=== PATIENT | female | born 1980 | race Caucasian/White ===

== ENCOUNTER 2017-03-28 00:35 | Emergency (ER) | payer MEDICAID ==
[~2017-03-28] VITALS: Ht 149.9 cm; Wt 59.9 kg
[~2017-03-28 00:35] MED LIST: GLUCOTROL XL5 M1 PO; LIPITOR20 MG PO; VITAMIN D32000 I1 PO; ZESTRIL10 MG PO
[2017-03-28 00:43] VITALS: BP 133/76
--- NOTE | 2017-03-28 00:52 | NUR ---
PT TAKEN TO BED 8
--- NOTE | 2017-03-28 00:55 | NUR ---
37 Y/O F W/C/O LOWER ABD / BACK PAIN , FEVER AND CHILLS X YESTERDAY. DENIES ANY PAIN WITH URINATION BUT STATES IS HAVING WHITE CLEAR DISCHARGE AND SOMETIMES BROWNISH X YESTERDAY WELL. NO S/S OF DISTRESS NOTED. ER MD MADE AWARE.
--- NOTE | 2017-03-28 01:23 | NUR ---
Dr. Vicente evaluating patient at bedside.
[2017-03-28] MEDS ORDERED: ACETAMINOPHEN EXTRA STRENGTH 500 MG TAB PO ONE (01:30)
[2017-03-28] MEDS ORDERED: KETOROLAC 30 MG/ML VIAL IM ONE (01:30)
--- NOTE | 2017-03-28 01:58 | NUR ---
Female Vocational Nurse Lvn (EMT ASAD) accompanied ER MD FOR female patient Pelvic Exam.
--- NOTE | 2017-03-28 02:11 | NUR ---
PT RESTING IN BED NO DISTRESS NOTED, PT AAO, OFFER BLANKET PT REFUSED CLAIMED IM OK
--- NOTE | 2017-03-28 03:15 | NUR ---
Ultrasound at bedside.
--- NOTE | 2017-03-28 03:15 | NUR ---
Harjeet cesar in [facility] - 03/28/17 [address] Vicente evaluating patient at bedside.
[2017-03-28 03:53] VITALS: BP 116/78
--- NOTE | 2017-03-28 03:53 | NUR ---
Patient discharged with v/s stable. Written and verbal after care instructions given and explained. Patient alert, oriented and verbalized understanding of instructions. Ambulatory with steady gait. All questions addressed prior to discharge. ID band removed. Patient advised to follow up with PMD THIS WK OR RETURN TO ER IF CONDITION WORSENS. Rx of NAPROSYN, FLAGYL AND NORCO given. Patient educated on indication of medication including possible reaction and side effects. Opportunity to ask questions provided and answered.
[2017-03-31] MEDS ORDERED: KEFLEX250 MG PO (18:40)
[2017-03-31] MEDS ORDERED: ACTOS30 M1 PO (18:40)
[2017-03-31] MEDS ORDERED: LEVEMIR100 U/ML SUBQ (18:40)
[2017-03-31] MEDS ORDERED: METFORMIN HCL500 MG PO (18:40)
== END 2017-03-28 03:53 | disposition home or self-care (01) ==
LOC: MED 00:35
DX: R10.2 Pelvic and perineal pain (principal); E11.9 Type 2 diabetes mellitus without complications; I10 Essential (primary) hypertension; E78.00 Pure hypercholesterolemia, unspecified
CPT/HCPCS: 36415; 76856; 81001; 81025; 87210; 96372; 99285; J1885; Q0092

== ENCOUNTER 2017-03-28 13:21 | Inpatient (IN) | payer MEDICAID ==
[~2017-03-28] VITALS: Ht 149.9 cm; Wt 59.9 kg
[~2017-03-28 13:21] MED LIST changes: +ATOR20TA PO; +CHOL20005 PO; +GLIP5TER PO; -GLUCOTROL XL5 M1 PO; -LIPITOR20 MG PO; +LISI10TA11 PO; -VITAMIN D32000 I1 PO; -ZESTRIL10 MG PO
[2017-03-28 14:13] VITALS: BP 126/63
--- NOTE | 2017-03-28 17:10 | NUR ---
Patient ambulated to bed 06.
--- NOTE | 2017-03-28 17:15 | NUR ---
PT PRESENTS TO ER W/C/O FEVER AND VOMITING. TEMPERATURE UPON ARRIVAL TO ER 98.1. PT STATES SHE WAS SEEN IN ER LAST NOC AND D/C, BUT FEELS SHE'S GOTTEN WORSE. HX DM, HTN, HYPERLIPIDEMIA.SKIN IS PINK/WARM/DRY; AAOX4 WITH EVEN AND STEADY GAIT; LUNGS CLEAR BL; HR EVEN AND REGULAR; PT DENIES ANY FEVER, CP, SOB, OR COUGH AT THIS TIME; PATIENT STATES SHE HAS ABDOMINAL PAIN TAHT RADIATEDS TO LOWER BACK;PAIN SCALE OF 8/10 AT THIS TIME; VSS; PATIENT POSITIONED FOR COMFORT; HOB ELEVATED; BEDRAILS UP X2; BED DOWN.ALL MONITORS IN PLACED.
--- NOTE | 2017-03-28 17:46 | NUR ---
DR HERNANDEZ AT BEDSIDE.
--- NOTE | 2017-03-28 18:21 | NUR ---
NOTIFIED ER OF PT'S BODY TEMP OF 102.1.
[2017-03-28 18:43] LABS: HEMATOCRIT 37.8 % (36-48); HEMOGLOBIN 12.4 g/dL (12.0-16.0); MEAN CORPUSCULAR HEMOGLOBIN 28 pg (27-31); MEAN CORPUSCULAR HGB CONC 33 g/dL (33-37); MEAN CORPUSCULAR VOLUME 86 fL (80-94); PLATELET COUNT (AUTO) 234 K/uL (140-450); RED BLOOD CELL COUNT(AUTO) 4.41 MIL/uL (4.20-5.40); RED CELL DISTRIBUTION WIDTH 12.1 % (11.6-13.7); WHITE BLOOD COUNT (AUTO) 8.6 K/uL (4.8-10.8)
[2017-03-28 18:57] LABS: BILIRUBIN,URINE NEGATIVE (NEGATIVE); BLOOD, URINE NEGATIVE (NEGATIVE); LEUKOCYTE ESTERASE ,URINE NEGATIVE (NEGATIVE); NITRITE, URINE POSITIVE (NEGATIVE); PH,URINE 5.5 (5.0-9.0); PROTEIN,URINE NEGATIVE (NEGATIVE); UGLUCOSE 3+ (NEGATIVE); UROBILINOGEN,URINE 0.2 EU/dL (0.2 - 1)
[2017-03-28 19:00] LABS: ANION GAP 16.8 (8-16); CALCIUM 9.1 mg/dL (8.5-10.1); CARBON DIOXIDE 24.1 mmol/L (21-32); CREATININE 0.6 mg/dL (0.6-1.3); POTASSIUM 3.9 mmol/L (3.5-5.1)
[2017-03-28 19:01] LABS: APPEARANCE,URINE HAZY (CLEAR); COLOR,URINE STRAW (YELLOW)
[2017-03-28 19:06] LABS: ALBUMIN 3.6 g/dL (3.4-5.0); BAND % (MANUAL) 9 % (0-8); LYMPHOCYTES % (MANUAL) 8 % (20-46); MONOCYTES % (MANUAL) 2 % (5-12); NEUTROPHILS % (MANUAL) 81 (43-65); TOTAL BILIRUBIN 0.4 mg/dL (0.0-1.0)
[2017-03-28 19:07] LABS: PLATELET ESTIMATE ADEQUATE
[2017-03-28 19:08] LABS: BACTERIA,URINE 4+ /HPF (None Seen); RBC,URINE 0-3 /HPF (0-5)
--- NOTE | 2017-03-28 19:11 | NUR ---
Pt report given to LESLIE PRATT. Transfer of care at this time.
[2017-03-28] MEDS ORDERED: ONDANSETRON 4 MG/2 ML VIAL IVP ONE (19:20)
[2017-03-28] MEDS ORDERED: ACETAMINOPHEN EXTRA STRENGTH 500 MG TAB PO ONE (19:20)
[2017-03-28] MEDS ORDERED: LEVOFLOXACIN 750 MG/D5W PREMIX 150 ML IV ONE (19:20)
[2017-03-28] MEDS ORDERED: HYDROmorphone 1 MG/ML AMP IVP ONE (19:20)
[2017-03-28] MEDS ORDERED: NACL 0.9% 1,000 ML IV ONE (19:25)
[2017-03-28] MEDS ORDERED: INSULIN HUMAN REGULAR 100 UNITS/ML 10 ML VIAL SUBQ ONE (19:45)
--- NOTE | 2017-03-28 19:49 | NUR ---
RECEIVED REPORT FROM LESLIE PRATT FOR TRANSFER OF CARE.
--- NOTE | 2017-03-28 19:49 | NUR ---
Pt report given to ANMOL NELSON . Transfer of care at this time.
[2017-03-28 21:00] VITALS: BP 113/70
--- NOTE | 2017-03-28 21:04 | NUR ---
Patient will be admitted to care of [facility]. Admited to DM, POLYNEPHRITIS]. Will go to room 109B. Belongings list completed. Report to KANDICE.
[2017-03-28] MEDS ORDERED: ONDANSETRON 4 MG/2 ML VIAL IVP PRN (21:10)
[2017-03-28] MEDS ORDERED: HYDROcodone/APAP 5/325 MG 1 TAB TAB PO PRN (21:10)
[2017-03-28] MEDS ORDERED: DEXTROSE 50% 50 ML SYR IVP PRN (21:10)
[2017-03-28] MEDS ORDERED: MORPHINE SULFATE 2 MG/ML SYR IVP PRN (21:10)
[2017-03-28] MEDS ORDERED: LORazepam 2 MG/ML VIAL IVP PRN (21:10)
[2017-03-28 21:30] VITALS: BP 113/70
[2017-03-28] MEDS: LEVOFLOXACIN 500 MG/D5W PREMIX 100 ML IV SCH (22:22)
[2017-03-28] MEDS: DEXT 5% /NACL 0.9% 1,000 ML IV SCH (22:22)
--- NOTE | 2017-03-28 22:22 | NUR ---
STARTED IVF AND IV LEVAQUIN ORDERED. NO ADVERSE REACTION OBSERVED AT THIS TIME. TITUS FROM RADIOLOGY CAME AND PERFORMED ABDOMINAL US. WILL CONTINUE TO MONITOR.
--- NOTE | 2017-03-28 22:38 | NUR ---
ADMITTED THIS 37 Y/O FEMALE FROM ER VIA IRIS HERNANDEZ. DX OF PYELONEPHRITIS AND UNCONTROLLED DIABETES. RESPIRATION EVEN AND UNLABORED,NO SOB, DENIES PAIN AT THIS TIME. SKIN INTACT. IV ACCESS TO LEFT AC GAUGE 22, INTACT AND PATENT. ORIENTED PT TO CALL LIGHT, BED, PHONE, TV, BATHROOM, VISITING HOURS, PROCEDURES. BELONGINGS CHECKED PER POLICY. PT HAS HER PURSE, STATES SHE WANTS TO KEEP IT WITH HER. EXPLAINED IMPORTANCE OF KEEPING IT IN THE SAFE, PT DECLINES AND STATES, "IT'S OKAY." ALL NEEDS MET AND ANTICIPATED. CALL LIGHT KEPT WITHIN EASY REACH. WILL CONTINUE TO MONITOR. PT NPO AT THIS TIME DUE TO PENDING ABDOMINAL US.
[2017-03-29] VITALS: BP 107/55
--- NOTE | 2017-03-29 | NUR ---
ROUTINE VS CHECKED, PT AWAKE. RESP EVEN AND UNLABORED,NO SOB, NO S/S RESPIRATORY DISTRESS AT THIS TIME. PT ENDORSES EPISODE OF VOMITING X1 IN A WATER PITCHER. NOTED APPROX 30ML OF WATER, LIGHT YELLOW IN COLOR. PT DENIES PAIN AT THIS TIME. INSTRUCTED TO CALL STAFF FOR ANY OTHER EPISODE OF VOMITING. PT VERBALIZED UNDERSTANDING. WILL CONTINUE TO MONITOR.
--- NOTE | 2017-03-29 02:37 | NUR ---
ROUNDS MADE, PT SLEEPING AT THIS TIME. NO S/S OF RESPIRATORY DISTRESS. WILL CONTINUE TO MONITOR.
[2017-03-29] MEDS: ACETAMINOPHEN 325 MG TAB PO PRN ×2 (03:59→16:46)
--- NOTE | 2017-03-29 03:59 | NUR ---
PT AWAKE, C/O HEADACHE 05/05. OFFERED TYLENOL 650MG, PT HAS AGREED. ADMINISTERED MEDICATION ORDERED. WILL CONTINUE TO MONITOR AND REASSESS FOR EFFECTIVENESS.
--- NOTE | 2017-03-29 06:24 | NUR ---
BLOOD SUGAR CHECKED, 295MG/DL AND REQUIRES 6UNITS OF REGULAR INSULIN. ENDORSED TO MICHELET FOR CONTINUITY OF CARE. PT IN STABLE CONDITION. DENIES PAIN AT THIS TIME.
--- NOTE | 2017-03-29 06:25 | NUR ---
RECEIVED REPORT FROM LEATHA NELSON AT BEDSIDE FOR CONTINUITY OF CARE.
[2017-03-29] MEDS: BLOOD GLUCOSE MONITORING 1 DEV DEV FS SCH ×4 (06:30→20:59)
[2017-03-29] MEDS: INSULIN LISPRO SLIDING SCALE 100 UNITS/ML VIAL SUBQ PRN ×4 (06:31→21:19)
[2017-03-29 07:02] LABS: HEMATOCRIT 33.8 % (36-48); HEMOGLOBIN 11.4 g/dL (12.0-16.0); MEAN CORPUSCULAR HEMOGLOBIN 29 pg (27-31); MEAN CORPUSCULAR HGB CONC 34 g/dL (33-37); MEAN CORPUSCULAR VOLUME 86 fL (80-94); PLATELET COUNT (AUTO) 202 K/uL (140-450); RED BLOOD CELL COUNT(AUTO) 3.94 MIL/uL (4.20-5.40); RED CELL DISTRIBUTION WIDTH 12.2 % (11.6-13.7); WHITE BLOOD COUNT (AUTO) 8.4 K/uL (4.8-10.8)
[2017-03-29 07:17] LABS: ANION GAP 17.1 (8-16); CARBON DIOXIDE 20.7 mmol/L (21-32); CREATININE 0.6 mg/dL (0.6-1.3); POTASSIUM 3.8 mmol/L (3.5-5.1)
--- NOTE | 2017-03-29 07:30 | NUR ---
RECEIVED ON BED AA0X4. NO SOB NOTED. NO C/O PAIN AT THIS TIME. IV TO LT AC PATENT AND INTACT. CHEST CLEAR. ABDOMNE SOFT, BOWEL SOUNDS PRESENT. NO EDEMA NOTED. INSTRUCTED PT TO CALL FOR ASSISTANCE, CALL LIGHT WITHIN REACH, PT VERBALIZED UNDERSTANDING.
[2017-03-29 07:42] LABS: BAND % (MANUAL) 11 % (0-8); LYMPHOCYTES % (MANUAL) 5 % (20-46); MONOCYTES % (MANUAL) 2 % (5-12); NEUTROPHILS % (MANUAL) 82 (43-65)
[2017-03-29 08:00] VITALS: BP 109/62
[2017-03-29] MEDS: metFORMIN 500 MG TAB PO SCH ×2 (08:57→16:46)
[2017-03-29] MEDS: LISINOPRIL 10 MG TAB PO SCH (08:58)
[2017-03-29] MEDS: ATORVASTATIN 20 MG TAB PO SCH (08:58)
[2017-03-29] MEDS: VITAMIN D 400 IU TAB PO SCH (08:58)
[2017-03-29] MEDS: glipiZIDE ER 5 MG TABER PO SCH ×2 (08:58→21:20)
[2017-03-29] MEDS: PIOGLITAZONE 30 MG TAB PO SCH (08:58)
[2017-03-29] MEDS: DEXT 5% /NACL 0.9% 1,000 ML IV SCH ×2 (09:03→20:20)
--- NOTE | 2017-03-29 09:34 | NUR ---
FNS REFERRAL RECEIVED ON 03/29/17 FOR UNCONTROLLED DIABETES. REFERRAL REASON DOES NOT MEET HIGH RISK CRITERIA PER HOSPITAL POLICY. PT WILL BE SEEN AND ASSESSED ACCORDING TO THE NUTRITION CARE POLICY. PATIENT HAS BEEN SCREENED AND CATEGORIZED MODERATE NUTRITION RISK. PATIENT WILL BE SEEN WITHIN 3-5 DAYS OF ADMISSION. 03/31/17 - 04/02/17 SANGITA MEYER MBA, RD
--- NOTE | 2017-03-29 14:00 | NUR ---
PT SEEN BY KYLEIGH RUIZ WITH NEW ORDERS.
[2017-03-29 16:00] VITALS: BP 125/64
--- NOTE | 2017-03-29 17:49 | NUR ---
PT SEEN BY KYLEIGH RUIZ WITH NEW ORDERS. Addendum: 03/29/17 at 1752 by Irish Emerson RN DISREGARD ABOVE NOTES, DUPLICATE.
--- NOTE | 2017-03-29 18:52 | NUR ---
PT RESTING. NO SOB NOTED. NO COMPLAINTS MADE. WILL ENDORSE TO NEXT SHIFT FOR CONTINUITY OF CARE.
--- NOTE | 2017-03-29 20:00 | NUR ---
RECEIVED AWAKE,ALERT,ORIENTED,AMBULATORY. AFEBRILE, NOT IN ACUTE DISTRESS. DENIES ANY PAIN OR DISCOMFORT. WITH IV FLUID D5NS INFUSING AT 100 ML/HR VIA LEFT AC #22 IV LINE. VS STABLE, WILL CONTINUE TO MONITOR. NEEDS ATTENDED.
[2017-03-29] MEDS: LEVOFLOXACIN 500 MG/D5W PREMIX 100 ML IV SCH (21:20)
--- NOTE | 2017-03-29 21:20 | NUR ---
HUMALOG 8 UNITS SQ GIVEN FOR DF=713 PER SLIDING SCALE. OTHER DUE MEDICATIONS GIVEN.
[2017-03-30] VITALS: BP 117/68
--- NOTE | 2017-03-30 | NUR ---
AWAKE,NOT IN ANY KIND OF DISTRESS. XRTQ=046.1. COOLING MEASURES DONE. WILL GIVE TYLENOL. SIDE RAILS UP,CALL LIGHT WITHIN REACH. WILL CONTINUE TO MONITOR.
[2017-03-30] MEDS: ACETAMINOPHEN 325 MG TAB PO PRN (00:34)
--- NOTE | 2017-03-30 00:34 | NUR ---
TYLENOL 650 MG PO GIVEN FOR FEVER.
--- NOTE | 2017-03-30 01:53 | NUR ---
TEMPERATURE RECHECKED=99.3.
--- NOTE | 2017-03-30 04:00 | NUR ---
ASLEEP,NO PAIN OR DISCOMFORT NOTED. TEMPERATURE IMPROVED. WILL CONTINUE TO MONITOR.
[2017-03-30] MEDS: BLOOD GLUCOSE MONITORING 1 DEV DEV FS SCH ×4 (06:08→20:30)
[2017-03-30] MEDS: INSULIN LISPRO SLIDING SCALE 100 UNITS/ML VIAL SUBQ PRN ×4 (06:18→20:52)
--- NOTE | 2017-03-30 06:18 | NUR ---
RAYJRASTT=420. HUMALOG 4 UNITS SQ GIVEN PER SLIDING SCALE.
--- NOTE | 2017-03-30 07:10 | NUR ---
ENDORSED CARE TO ROSARIO RN.
--- NOTE | 2017-03-30 07:11 | NUR ---
PT AWAKE AND ORIENTED X4, BREATHING EVENLY AND UNLABORED, NO SIGNS OF ACUTE DISTRESS. SKIN IS WARM AND DRY. . NO SIGNS OF ANY BOWEL/BLADDER DISCOMFORT. DENIES OF ANY PAIN OR DISCOMFORT AT THIS TIME, ALL NEEDS ATTENDED, SAFETY PRECAUTIONS MAINTAINED. CALL LIGHT WITHIN REACH.
[2017-03-30 07:28] LABS: BASOPHILS % (AUTO) 0.7 % (0.0-2.0); EOSINOPHILS # (AUTO) 0.1 K/uL (0-0.4); EOSINOPHILS % (AUTO) 1.1 % (0.0-4.0); HEMATOCRIT 33.8 % (36-48); HEMOGLOBIN 11.5 g/dL (12.0-16.0); LYMPHOCYTES # (AUTO) 1.2 K/uL (2.5-16.5); MEAN CORPUSCULAR HEMOGLOBIN 29 pg (27-31); MEAN CORPUSCULAR HGB CONC 34 g/dL (33-37); MEAN CORPUSCULAR VOLUME 86 fL (80-94); MONOCYTES # (AUTO) 0.5 K/uL (0.8-1.0); MONOCYTES % (AUTO) 7.7 % (1.7-9.3); NEUTROPHILS # (AUTO) 4.4 K/uL (1.8-7.7); NEUTROPHILS % (AUTO) 71.5 % (42.2-75.2); PLATELET COUNT (AUTO) 189 K/uL (140-450); RED BLOOD CELL COUNT(AUTO) 3.91 MIL/uL (4.20-5.40); RED CELL DISTRIBUTION WIDTH 12.1 % (11.6-13.7); WHITE BLOOD COUNT (AUTO) 6.3 K/uL (4.8-10.8)
[2017-03-30 07:37] LABS: ANION GAP 14.5 (8-16); CALCIUM 8.2 mg/dL (8.5-10.1); CARBON DIOXIDE 22.9 mmol/L (21-32); CREATININE 0.5 mg/dL (0.6-1.3); POTASSIUM 3.4 mmol/L (3.5-5.1)
[2017-03-30 07:50] VITALS: BP 111/55
[2017-03-30] MEDS: VITAMIN D 400 IU TAB PO SCH (08:09)
[2017-03-30] MEDS: metFORMIN 500 MG TAB PO SCH ×2 (08:10→16:32)
[2017-03-30] MEDS: LISINOPRIL 10 MG TAB PO SCH (08:10)
[2017-03-30] MEDS: PIOGLITAZONE 30 MG TAB PO SCH (08:10)
[2017-03-30] MEDS: glipiZIDE ER 5 MG TABER PO SCH ×2 (08:10→20:51)
[2017-03-30] MEDS: ATORVASTATIN 20 MG TAB PO SCH (08:10)
[2017-03-30] MEDS: DEXT 5% /NACL 0.9% 1,000 ML IV SCH (08:12)
[2017-03-30] MEDS ORDERED: POTASSIUM CHLORIDE 10 MEQ TABER PO SCH (11:50)
--- NOTE | 2017-03-30 11:54 | NUR ---
WAS SEEN BY Cory RUIZ RECEIVED NEW LAB AND MED ORDERS. NOTED AND CARRIED OUT.
--- NOTE | 2017-03-30 12:48 | NUR ---
WAS SEEN BY Ad MC. NEW LAB AND IMAGING ORDERS RECEIVED. NOTED AND CARRIED OUT.
--- NOTE | 2017-03-30 12:58 | NUR ---
WAS SEEN BY DR. BA V. AWARE OF LAB RESULT, MDRO E.COLI URINE. PHYSICIAN TO SEE PATIENT.
[2017-03-30 13:09] LABS: ALBUMIN 2.6 g/dL (3.4-5.0); BILIRUBIN,DIRECT 0.1 mg/dL (0.0-0.3); TOTAL BILIRUBIN 0.2 mg/dL (0.0-1.0); TOTAL PROTEIN, SERUM 6.8 g/dL (6.4-8.2)
--- NOTE | 2017-03-30 13:09 | NUR ---
RECEIVED NEW IV MED ORDER FROM DR. COSME. NOTED AND CARRIED OUT.
--- NOTE | 2017-03-30 13:10 | NUR ---
PT TRANSFERRED TO RM. 113.
[2017-03-30] MEDS ORDERED: INSULIN DETEMIR 100 UNITS/ML 10 ML VIAL SUBQ SCH (13:20)
--- NOTE | 2017-03-30 13:24 | NUR ---
WAS SEEN BY DR. DODGE. NEW MED AND LAB ORDERS RECEIVED. NOTED AND CARRIED OUT.
[2017-03-30 16:00] VITALS: BP 105/72
[2017-03-30] MEDS ORDERED: metFORMIN 500 MG TAB PO SCH (17:00)
--- NOTE | 2017-03-30 19:04 | NUR ---
PT AWAKE AND RESPONSIVE, NO SIGNS OF ACUTE DISTRESS. ENDORSED TO ONCOMING DIGITAL MARKETING APPRENTICE NURSE FOR CONTINUITY OF CARE.
[2017-03-30] MEDS: SODIUM CHLORIDE FLUSH 10 ML SYR IVF SCH (19:30)
--- NOTE | 2017-03-30 20:00 | NUR ---
RECEIVED ALERT,ORIENTED. AFEBRILE, NOT IN ACUTE DISTRESS. COMPLAINED OF HEADACHE (06/05). NORCO 1 TABLET PO GIVEN. WITH SALINE LOCK TO THE LEFT AC INTACT. CONTACT ISOLATION FOR MDRO OF URINE OBSERVED. FAMILY MEMBERS AT BEDSIDE. VS STABLE, WILL CONTINUE TO MONITOR. NEEDS ATTENDED.
--- NOTE | 2017-03-30 20:52 | NUR ---
HUMALOG 4 UNITS SQ GIVEN FOR KT=697 PER SLIDING SCALE. OTHER DUE MEDICATIONS GIVEN.
[2017-03-31] VITALS: BP 107/71
--- NOTE | 2017-03-31 | NUR ---
AWAKE,NOT IN ANY KIND OF DISTRESS. NO PAIN OR DISCOMFORT NOTED. SIDE RAILS UP, CALL LIGHT WITHIN REACH. KEPT WARM AND COMFORTABLE. VS REMAIN STABLE.
--- NOTE | 2017-03-31 04:00 | NUR ---
RESTING IN BED, NO PAIN OR DISCOMFORT. NO SIGNIFICANT CHANGE IN CONDITION. WILL CONTINUE TO MONITOR.
--- NOTE | 2017-03-31 05:00 | NUR ---
PT.ADVISED THAT SHE WILL BE NPO AND MUST BE FREE FROM NARCOTICS FROM 0500 ONWARD FOR HIDA SCAN AT 0900.
[2017-03-31 06:00] LABS: BASOPHILS # (AUTO) 0.1 K/uL (0.00-0.22); BASOPHILS % (AUTO) 1.2 % (0.0-2.0); EOSINOPHILS # (AUTO) 0.1 K/uL (0-0.4); EOSINOPHILS % (AUTO) 1.5 % (0.0-4.0); HEMATOCRIT 34.8 % (36-48); HEMOGLOBIN 11.4 g/dL (12.0-16.0); LYMPHOCYTES # (AUTO) 1.6 K/uL (2.5-16.5); LYMPHOCYTES % (AUTO) 26.6 % (20.5-51.1); MEAN CORPUSCULAR HEMOGLOBIN 28 pg (27-31); MEAN CORPUSCULAR HGB CONC 33 g/dL (33-37); MEAN CORPUSCULAR VOLUME 87 fL (80-94); MONOCYTES # (AUTO) 0.6 K/uL (0.8-1.0); MONOCYTES % (AUTO) 9.4 % (1.7-9.3); NEUTROPHILS # (AUTO) 3.7 K/uL (1.8-7.7); NEUTROPHILS % (AUTO) 61.3 % (42.2-75.2); PLATELET COUNT (AUTO) 219 K/uL (140-450); RED BLOOD CELL COUNT(AUTO) 4.02 MIL/uL (4.20-5.40); RED CELL DISTRIBUTION WIDTH 12.3 % (11.6-13.7); WHITE BLOOD COUNT (AUTO) 6.1 K/uL (4.8-10.8)
[2017-03-31] MEDS: BLOOD GLUCOSE MONITORING 1 DEV DEV FS SCH ×3 (06:16→16:08)
--- NOTE | 2017-03-31 06:16 | NUR ---
DXVPRQRMS=151. NO INSULIN COVERAGE NEEDED. PT.NPO FOR HIDA SCAN AT 0900. WILL ENDORSE TO AM SHIFT.
[2017-03-31 06:24] LABS: ANION GAP 15.3 (8-16); CALCIUM 8.6 mg/dL (8.5-10.1); CARBON DIOXIDE 24.1 mmol/L (21-32); CREATININE 0.5 mg/dL (0.6-1.3); POTASSIUM 3.4 mmol/L (3.5-5.1)
[2017-03-31] MEDS: SODIUM CHLORIDE FLUSH 10 ML SYR IVF SCH (06:47)
--- NOTE | 2017-03-31 07:14 | NUR ---
ENDORSED CARE TO ROSARIO RN.
--- NOTE | 2017-03-31 07:15 | NUR ---
PT AWAKE ALERT AND ORIENTED X4. BREATHING EVENLY AND UNLABORED, NO SIGNS OF ACUTE DISTRESS. SKIN IS INTACT, WARM AND DRY. NO SIGNS OF ANY BOWEL/BLADDER DISCOMFORT. DENIES OF ANY PAIN OR DISCOMFORT. ALL NEEDS ATTENDED, CONTACT AND SAFETY PRECAUTIONS MAINTAINED. CALL LIGHT WITHIN REACH. HOLD DIET FOR HIDA SCAN TODAY.
[2017-03-31 07:50] VITALS: BP 101/64
[2017-03-31] MEDS: VITAMIN D 400 IU TAB PO SCH (08:38)
[2017-03-31] MEDS: metFORMIN 500 MG TAB PO SCH ×2 (08:38→16:13)
[2017-03-31] MEDS: ATORVASTATIN 20 MG TAB PO SCH (08:38)
[2017-03-31] MEDS: PIOGLITAZONE 30 MG TAB PO SCH (08:38)
[2017-03-31] MEDS: glipiZIDE ER 5 MG TABER PO SCH (08:38)
[2017-03-31] MEDS: LISINOPRIL 10 MG TAB PO SCH (08:39)
[2017-03-31] MEDS ORDERED: INSULIN DETEMIR 100 UNITS/ML 10 ML VIAL SUBQ SCH (09:00)
[2017-03-31] MEDS: INSULIN LISPRO SLIDING SCALE 100 UNITS/ML VIAL SUBQ PRN ×2 (11:02→16:09)
--- NOTE | 2017-03-31 15:09 | NUR ---
INITIAL REVIEW SENT TO [facility] FAX# [phone] PH# [phone] RASHAD ARIZMENDI EXT [id number]. SPOKE WITH PITO OF [facility] PH# [phone] AND SHE SAID THEY WANT TO TRANSFER PATIENT TO CONTRACTED FACILITY. RASHAD CLARKE. SPOKE WITH DR. Cory HALEY PH# [phone] AND HE SAID HE PLANS TO DISCHARGE PATIENT ON ORAL ANTIBIOTIC AND INSULIN AFTER HE DOES HIS ROUNDS TODAY. INFORMED PITO OF THE DC PLAN. Addendum: 03/31/17 at 1518 by Latonya Cooper CM NURSE PONCE EXT [id number] TRICIA.
[2017-03-31 16:00] VITALS: BP 99/55
[2017-03-31] MEDS ORDERED: PIOG30TA6 PO (18:40)
[2017-03-31] MEDS ORDERED: METF500T4 PO (18:40)
[2017-03-31] MEDS ORDERED: LEVEMIR SUBQ (18:40)
[2017-03-31] MEDS ORDERED: CEPH250C16 PO (18:40)
--- NOTE | 2017-03-31 18:45 | NUR ---
PT ALERT AND RESPONSIVE, NO SIGNS OF ACUTE DISTRESS. MAY D/C HOME TODAY ORDERED BY DR. TERA Servin. WAS EDUCATED ON CONTINUING PLAN OF CARE, REVIEWED DISCHARGE PRESCRIPTIONS INDICATION AND SIDE EFFECTS. PT VERBALIZED UNDERSTANDING. IV AND WRIST BANDS REMOVED, PERSONAL BELONGINGS WITH PT UPON DISCHARGE. TO BE PICKED UP BY FAMILY VIA PRIVATE AUTO.
--- NOTE | 2017-03-31 19:05 | NUR ---
PT LEFT UNIT, ESCORTED TO ER FRONT LOBBY TO GO HOME.
--- NOTE | 2017-04-01 08:39 | NUR ---
CM NOTE RECEIVED CALL FROM [facility] REQUESTING FOR REVIEW. SENT REVIEW AND DISCHARGE SUMMARY TO [facility] FAX# [phone] PH# [phone] EXT [phone]
== END 2017-03-31 19:06 | disposition home or self-care (01) | DRG 720 ==
LOC: MED 13:21 → MTU 20:42
PROVIDERS: ADMIT Preventive Medicine Preventive Medicine/Occupational Environmental Medicine; ATTEND Preventive Medicine Preventive Medicine/Occupational Environmental Medicine
DX: A41.51 Sepsis due to Escherichia coli [E. coli] (principal); E43 Unspecified severe protein-calorie malnutrition; K76.0 Fatty (change of) liver, not elsewhere classified; N10 Acute pyelonephritis; E11.65 Type 2 diabetes mellitus with hyperglycemia; I10 Essential (primary) hypertension; E78.5 Hyperlipidemia, unspecified; R74.0 Nonspecific elevation of levels of transaminase and lactic acid dehydrogenase [LDH]; K83.8 Other specified diseases of biliary tract; K80.20 Calculus of gallbladder without cholecystitis without obstruction; E78.00 Pure hypercholesterolemia, unspecified; B96.20 Unspecified Escherichia coli [E. coli] as the cause of diseases classified elsewhere; Z68.26 Body mass index [BMI] 26.0-26.9, adult; Z79.84 Long term (current) use of oral hypoglycemic drugs; Z83.3 Family history of diabetes mellitus
CPT/HCPCS: 36415; 76700; 78445; 80048; 80053; 80076; 81001; 82948; 83036; 85025; 85651; 86140; 87040; 87081; 87086; 87186; 96361; 96365; 96372; 96375; 99285; A9510; J0690; J1170; J1815; J1956; J2405; J7030; J7042; J7060; Q0092

== ENCOUNTER 2018-04-10 00:17 | Emergency (ER) | payer MEDICAID ==
[~2018-04-10] VITALS: Ht 149.9 cm; Wt 584.7 kg
[~2018-04-10 00:17] MED LIST changes: +ACT30 PO; +CEPH250C16 PO; -CHOL20005 PO; +CHOL200072 PO; +LEVEMIR SUBQ; +METF500T4 PO
[2018-04-10 00:31] VITALS: BP 126/83
[2018-04-10] MEDS ORDERED: KETOROLAC 60 MG/2 ML VIAL IM ONE (01:05)
[2018-04-10 03:10] VITALS: BP 119/81
== END 2018-04-10 03:10 | disposition home or self-care (01) ==
LOC: MED 00:17
DX: S13.4XXA Sprain of ligaments of cervical spine, initial encounter (principal); E11.9 Type 2 diabetes mellitus without complications; I10 Essential (primary) hypertension; Z79.899 Other long term (current) drug therapy; V49.49XA Driver injured in collision with other motor vehicles in traffic accident, initial encounter; Y93.89 Activity, other specified; Y92.410 Unspecified street and highway as the place of occurrence of the external cause; Y99.8 Other external cause status
CPT/HCPCS: 96372; 99283; J1885

== ENCOUNTER 2020-10-02 10:57 | Emergency (ER) | payer OTHER ==
[~2020-10-02] VITALS: Ht 149.9 cm; Wt 59.0 kg
[~2020-10-02 10:57] MED LIST changes: +ACET-9525 PO; +ATOR20TA40 PO; +LANTUS SUBQ; +LISI-420 PO; +METF-988 PO; -METF500T4 PO; +VITD1000 PO
[2020-10-02 11:02] VITALS: BP 124/64
--- NOTE | 2020-10-02 11:12 | NUR ---
40 Y/O FEMALE C/O RUQ PAIN 10/10 SHARP INTERMITTENT X 4 DAYS. PT STATES SHE TOOK TYNENOL MINIMAL RELIEF TODAY WORSENED. +N, +V 3X. DENIES DIZZINESS, FEVER, CHILLS. PMH: DM, HTN, HLD, NEUROPATHY, RA, VIT D DEFICIENCY C SECTION RX; METFORMIN, ATORVASTATIN, VIT D NKA
--- NOTE | 2020-10-02 11:17 | NUR ---
Dr Limon at bedside examining patient
--- NOTE | 2020-10-02 11:17 | NUR ---
Dr. Limon is evaluating the patient at bedside.
[2020-10-02] MEDS ORDERED: NACL 0.9% 500 ML IV ONE (11:20)
[2020-10-02] MEDS ORDERED: KETOROLAC 30 MG/ML VIAL IVP ONE (11:20)
[2020-10-02] MEDS ORDERED: ONDANSETRON 4 MG/2 ML VIAL IVP ONE (11:20)
--- NOTE | 2020-10-02 11:44 | NUR ---
Performed COVID RICHARD swab, walked to lab.
--- NOTE | 2020-10-02 11:53 | NUR ---
Iv 20G established to left AC, good blood return.
[2020-10-02 11:54] LABS: BASOPHILS % (AUTO) 0.3 % (0.0-2.0); EOSINOPHILS % (AUTO) 0.4 % (0.0-4.0); HEMATOCRIT 28.9 % (36-48); HEMOGLOBIN 9.5 g/dL (12.0-16.0); LYMPHOCYTES # (AUTO) 1.7 K/uL (2.5-16.5); LYMPHOCYTES % (AUTO) 19.9 % (20.5-51.1); MEAN CORPUSCULAR HEMOGLOBIN 27 pg (27-31); MEAN CORPUSCULAR HGB CONC 33 g/dL (33-37); MEAN CORPUSCULAR VOLUME 81.8 fL (80-94); MONOCYTES # (AUTO) 0.5 K/uL (0.8-1.0); MONOCYTES % (AUTO) 6.1 % (1.7-9.3); NEUTROPHILS # (AUTO) 6.2 K/uL (1.8-7.7); NEUTROPHILS % (AUTO) 73.3 % (42.2-75.2); PLATELET COUNT (AUTO) 427 K/uL (140-450); RED BLOOD CELL COUNT(AUTO) 3.53 MIL/uL (4.20-5.40); RED CELL DISTRIBUTION WIDTH 15.3 % (11.6-13.7); WHITE BLOOD COUNT (AUTO) 8.5 K/uL (4.8-10.8)
[2020-10-02 12:14] LABS: ALBUMIN 2.8 g/dL (3.4-5.0); ANION GAP 10.9 (8-16); CARBON DIOXIDE 26.8 mmol/L (21-32); CREATININE 0.7 mg/dL (0.6-1.3); POTASSIUM 3.7 mmol/L (3.5-5.1); TOTAL BILIRUBIN 0.2 mg/dL (0.0-1.0)
--- NOTE | 2020-10-02 14:08 | NUR ---
Pt resting, HOB elevated.
[2020-10-02 14:14] VITALS: BP 120/72
--- NOTE | 2020-10-02 14:14 | NUR ---
Patient discharged with v/s stable. Written and verbal after care instructions given and explained. Patient alert, oriented and verbalized understanding of instructions. Ambulatory with steady gait. All questions addressed prior to discharge. ID band removed. Patient advised to follow up with PMD. Rx of zofran ODt 4mg 1 tab q8h PRn N/V, and motrin 800mg tab TID PO prn pain given. Patient educated on indication of medication including possible reaction and side effects. Opportunity to ask questions provided and answered.
--- NOTE | 2020-10-17 16:50 | NUR ---
LATE ENTRY -- NORMAL SALINE ENDED 10/02/20 AT 1254
== END 2020-10-02 14:14 | disposition home or self-care (01) ==
LOC: MED 10:57
DX: K82.8 Other specified diseases of gallbladder (principal); M54.9 Dorsalgia, unspecified; R11.2 Nausea with vomiting, unspecified; E11.9 Type 2 diabetes mellitus without complications; I10 Essential (primary) hypertension; Z98.890 Other specified postprocedural states; Z79.4 Long term (current) use of insulin; Z79.899 Other long term (current) drug therapy
CPT/HCPCS: 36415; 76705; 80053; 81002; 81025; 83690; 85025; 87426; 96361; 96374; 96375; 99284; J1885; J2405; J7030

== ENCOUNTER 2020-10-20 16:14 | Observation (INO) | payer OTHER, SELFPAY ==
[~2020-10-20] VITALS: Ht 149.9 cm; Wt 55.8 kg
[2020-10-20 16:27] VITALS: BP 126/71
--- NOTE | 2020-10-20 16:35 | NUR ---
PT C/O INTERMITTENT DIFFUSED ABDOMINAL PAIN WITH NAUSEA, VOMITING, FATIGUE, SUBJECTIVE FEVER SINCE THE BEGINNING OF SEPTEMBER. PT TESTED POSITIVE FOR COVID ON 10/08/2020. PMH: ANDREW, SARAVANAN
[2020-10-20] MEDS ORDERED: NACL 0.9% 1,000 ML IV SCH (17:40)
[2020-10-20] MEDS ORDERED: HYDROcodone/APAP 5/325 MG 1 TAB TAB PO ONE (17:40)
[2020-10-20] MEDS ORDERED: MORPHINE SULFATE 4 MG/ML SYR IVP ONE (17:40)
[2020-10-20] MEDS ORDERED: ONDANSETRON 4 MG ODT PO ONE ×2 (17:40→23:55)
[2020-10-20] MEDS ORDERED: ONDANSETRON 4 MG/2 ML VIAL IVP ONE (17:40)
--- NOTE | 2020-10-20 18:33 | NUR ---
NO IV MEDS GIVEN IN THE TENT PER DR. SANTANA'S ORDER.
[2020-10-20 19:05] LABS: BASOPHILS % (AUTO) 0.1 % (0.0-2.0); HEMATOCRIT 27.5 % (36-48); HEMOGLOBIN 8.9 g/dL (12.0-16.0); LYMPHOCYTES # (AUTO) 0.8 K/uL (2.5-16.5); LYMPHOCYTES % (AUTO) 6.3 % (20.5-51.1); MEAN CORPUSCULAR HEMOGLOBIN 26 pg (27-31); MEAN CORPUSCULAR HGB CONC 32 g/dL (33-37); MEAN CORPUSCULAR VOLUME 80.8 fL (80-94); MONOCYTES # (AUTO) 0.4 K/uL (0.8-1.0); MONOCYTES % (AUTO) 3.3 % (1.7-9.3); NEUTROPHILS # (AUTO) 12.2 K/uL (1.8-7.7); NEUTROPHILS % (AUTO) 90.3 % (42.2-75.2); PLATELET COUNT (AUTO) 487 K/uL (140-450); RED BLOOD CELL COUNT(AUTO) 3.41 MIL/uL (4.20-5.40); RED CELL DISTRIBUTION WIDTH 15.6 % (11.6-13.7); WHITE BLOOD COUNT (AUTO) 13.5 K/uL (4.8-10.8)
[2020-10-20 19:28] LABS: ALBUMIN 2.6 g/dL (3.4-5.0); ANION GAP 19.8 (8-16); CARBON DIOXIDE 22.6 mmol/L (21-32); CREATININE 1.3 mg/dL (0.6-1.3); POTASSIUM 4.4 mmol/L (3.5-5.1); TOTAL BILIRUBIN 0.3 mg/dL (0.0-1.0)
--- NOTE | 2020-10-20 23:40 | NUR ---
COMPLAINED OF PAIN AND NAUSEA, ERMD NOTED.
[2020-10-20] MEDS ORDERED: MORPHINE SULFATE 4 MG/ML SYR IM ONE (23:55)
[2020-10-21] MEDS ORDERED: MORPHINE SULFATE 4 MG/ML SYR IVP PRN (00:20)
[2020-10-21] MEDS ORDERED: KCL 20 MEQ/WATER INJ PREMIX 200 ML IV PRN (00:20)
[2020-10-21] MEDS ORDERED: MAG SULF 2000 MG/WATER PREMIX 50 ML IV PRN (00:20)
[2020-10-21] MEDS ORDERED: DEXTROSE 50% 50 ML SYR IVP PRN (00:20)
[2020-10-21] MEDS ORDERED: POTASSIUM CHLORIDE 10 MEQ TABER PO PRN (00:20)
[2020-10-21] MEDS ORDERED: HYDROcodone/APAP 5/325 MG 1 TAB TAB PO ONE (05:10)
[2020-10-21] MEDS ORDERED: ONDANSETRON 4 MG ODT SL ONE (05:10)
--- NOTE | 2020-10-21 08:29 | NUR ---
PATIENT HAS BEEN SCREENED AND CATEGORIZED MODERATE NUTRITION RISK. PATIENT WILL BE SEEN WITHIN 3-5 DAYS OF ADMISSION. 10/24/20 10/26/[address]OZ RD
[2020-10-21 08:38] LABS: BASOPHILS % (AUTO) 0.1 % (0.0-2.0); HEMATOCRIT 26.8 % (36-48); HEMOGLOBIN 8.8 g/dL (12.0-16.0); LYMPHOCYTES # (AUTO) 0.7 K/uL (2.5-16.5); LYMPHOCYTES % (AUTO) 5.2 % (20.5-51.1); MEAN CORPUSCULAR HEMOGLOBIN 26 pg (27-31); MEAN CORPUSCULAR HGB CONC 33 g/dL (33-37); MEAN CORPUSCULAR VOLUME 80.4 fL (80-94); MONOCYTES # (AUTO) 0.8 K/uL (0.8-1.0); MONOCYTES % (AUTO) 5.8 % (1.7-9.3); NEUTROPHILS # (AUTO) 12.6 K/uL (1.8-7.7); NEUTROPHILS % (AUTO) 88.9 % (42.2-75.2); PLATELET COUNT (AUTO) 418 K/uL (140-450); RED BLOOD CELL COUNT(AUTO) 3.34 MIL/uL (4.20-5.40); RED CELL DISTRIBUTION WIDTH 15.9 % (11.6-13.7); WHITE BLOOD COUNT (AUTO) 14.2 K/uL (4.8-10.8)
[2020-10-21 09:45] LABS: ALBUMIN 2.5 g/dL (3.4-5.0); CARBON DIOXIDE 19.5 mmol/L (21-32); CREATININE 1.6 mg/dL (0.6-1.3); POTASSIUM 4.5 mmol/L (3.5-5.1); TOTAL BILIRUBIN 0.4 mg/dL (0.0-1.0)
--- NOTE | 2020-10-21 20:54 | NUR ---
RECEIVED TELEPHONE REPORT FROM PATEL MCLAUGHLIN RN.
--- NOTE | 2020-10-21 21:25 | NUR ---
Patient will be admitted to care of DR BACH. Admited to DR BACH. Will go to room 111A. Belongings list completed. Report to GUICHO.
--- NOTE | 2020-10-21 22:00 | NUR ---
RECEIVED PT. PT IN ROOM 122B. PT IS AAOX4. RESPIRATIONS ARE EQUAL AND UNLABORED ON ROOM AIR. LUNG SOUNDS ARE DIMINISHED AT BASE. PT REPORTS BODY ACHES, PT TESTED COVID POSITIVE ON THURSDAY 10/18, RAPID COVID NEG, PCR PENDING. C/C N/V PER PT GOING ON X 1MO. DX A.CHOLECYSTIS ALSO PYELONEPHRITIS AND HYDRONEPHROSIS. ABD IS SOFT AND BOWEL SOUNDS ACTIVE X4, PT IS AMBULATORY AND ABLE TO MAKE NEEDS KNOWN, IV ON LAC 20G,SKIN IS INTACT, PT ADMITTED UNDER OBSERVATION, PER REPORT SX KARL ON FOR FRIDAY FOR LAP MAY, MRSA SWAB OBTAINED, ORIENTED PT TO ROOM, STAFF, AND CALL LIGHT. POC DISCUSSED WITH PT. PT VERBALIZED UNDERSTANDING, ALL NEEDS MET, CALL LIGHT IS WITHIN REACH. WILL ROUND FREQUENTLY.
[2020-10-21] MEDS ORDERED: cefTRIAXone 1,000 MG VIAL ONE (22:23)
[2020-10-21] MEDS: NACL 0.9% 1,000 ML IV SCH (22:26)
[2020-10-21 23:00] VITALS: BP 117/62
[2020-10-22] MEDS ORDERED: PIPERACILLIN/TAZOBACTAM 3.375 GM VIAL IV ONE ×2 (00:07→05:43)
[2020-10-22] MEDS: PIPERACILLIN/TAZOBACTAM 3.375 GM in DEXTROSE 5% 50 ML IV SCH ×4 (00:11→17:45)
--- NOTE | 2020-10-22 00:11 | NUR ---
ZOSYN IS NOW INFUSING PER ORDERS. ALL NEEDS MET.
[2020-10-22] MEDS: HYDROcodone/APAP 5/325 MG 1 TAB TAB PO PRN ×4 (00:18→21:13)
[2020-10-22] MEDS: ACETAMINOPHEN 325 MG TAB PO PRN ×2 (00:55→13:03)
--- NOTE | 2020-10-22 03:09 | NUR ---
ROUNDS MADE. PT SLEEPING COMFORTABLY IN BED WITH EYES CLOSED. CHEST RISE AND FALL NOTED. NO S/S OF DISTRESS. CALL LIGHT IS WITHIN REACH.
[2020-10-22 04:00] VITALS: BP 113/67
--- NOTE | 2020-10-22 04:40 | NUR ---
VITAL SIGNS ARE WITHIN NORMAL LIMITS. ALL NEEDS MET.
--- NOTE | 2020-10-22 06:00 | NUR ---
PAGED DOCTOR JOESPH FOR BG [phone] WAITING FOR CALL BACK.
[2020-10-22] MEDS ORDERED: INSULIN LANTUS 100 UNITS/ML 10 ML VIAL SUBQ SCH (06:35)
[2020-10-22] MEDS: BLOOD GLUCOSE MONITORING 1 DEV DEV FS SCH ×4 (06:39→21:00)
[2020-10-22] MEDS: INSULIN LISPRO SLIDING SCALE 100 UNITS/ML VIAL SUBQ PRN ×3 (06:40→16:26)
--- NOTE | 2020-10-22 06:41 | NUR ---
ADMINISTERED 5UNIT HUMALOG AND 5 UNITS OF LANTUS PER MD ORDER.
--- NOTE | 2020-10-22 07:30 | NUR ---
RECEIVED BEDSIDE REPORT FROM DAY RN. PT ENDORSED IN STABLE CONDITION.
[2020-10-22] MEDS: DOCUSATE SODIUM 100 MG GELCAP PO SCH (08:38)
--- NOTE | 2020-10-22 08:39 | NUR ---
SCHEDULED MORNING MEDICATION GIVEN, NORCO GIVEN FOR RIGHT ABD PAIN 04/05. EDUCATION PROVIDED. IV INFUSING INDICATED. SAFETY MEASURES IN PLACE, WILL CONTINUE TO MONITOR.
[2020-10-22 09:35] LABS: BASOPHILS % (AUTO) 0.4 % (0.0-2.0); EOSINOPHILS % (AUTO) 0.1 % (0.0-4.0); HEMATOCRIT 26.9 % (36-48); HEMOGLOBIN 8.9 g/dL (12.0-16.0); LYMPHOCYTES # (AUTO) 0.7 K/uL (2.5-16.5); LYMPHOCYTES % (AUTO) 8.7 % (20.5-51.1); MEAN CORPUSCULAR HEMOGLOBIN 26 pg (27-31); MEAN CORPUSCULAR HGB CONC 33 g/dL (33-37); MEAN CORPUSCULAR VOLUME 79.9 fL (80-94); MONOCYTES # (AUTO) 0.3 K/uL (0.8-1.0); NEUTROPHILS # (AUTO) 6.7 K/uL (1.8-7.7); NEUTROPHILS % (AUTO) 86.8 % (42.2-75.2); PLATELET COUNT (AUTO) 405 K/uL (140-450); RED BLOOD CELL COUNT(AUTO) 3.37 MIL/uL (4.20-5.40); RED CELL DISTRIBUTION WIDTH 15.9 % (11.6-13.7); WHITE BLOOD COUNT (AUTO) 7.7 K/uL (4.8-10.8)
[2020-10-22 09:46] LABS: PROTHROMBIN TIME 9.7 secs (10.8-13.4)
[2020-10-22 10:08] LABS: ALBUMIN 2.3 g/dL (3.4-5.0); ANION GAP 14.6 (8-16); CARBON DIOXIDE 26.1 mmol/L (21-32); CREATININE 1.5 mg/dL (0.6-1.3); MAGNESIUM 2.5 mg/dL (1.8-2.4); POTASSIUM 3.7 mmol/L (3.5-5.1); TOTAL BILIRUBIN 0.3 mg/dL (0.0-1.0)
--- NOTE | 2020-10-22 11:26 | NUR ---
10 UNITS OF HUMALOG GIVEN FOR BLOOD GLUCOSE LEVEL 363. EDUCATION PROVIDED, SAFETY MEASURES IN PLACE, WILL CONTINUE TO MONITOR.
[2020-10-22 16:00] VITALS: BP 113/65
[2020-10-22] MEDS: NACL 0.9% 1,000 ML IV SCH ×2 (16:15→16:21)
--- NOTE | 2020-10-22 16:23 | NUR ---
NORCO GIVEN FOR RIGHT SIDE ABD PAIN 04/05. EDUCATION PROVIDED WITH NON PHARMACOLOGICAL PAIN MANAGEMENT. INFORMED PATIENT REGARDING THE DIET AND NPO STATUS AFTER MIDNIGHT, VERBALIZED UNDERSTANDING. WILL CONTINUE TO MONITOR.
--- NOTE | 2020-10-22 17:52 | NUR ---
SURGICAL CONSENT SIGNED. SCHEDULED MED ZOSYN GIVEN VIA IVPB, EDUCATION PROVIDED. SAFETY MEASURES IN PLACE, WILL CONTINUE TO MONITOR.
--- NOTE | 2020-10-22 19:38 | NUR ---
ENDORSED PATIENT TO PROFESSOR OF POULTRY SCIENCE RN FOR CONTINUITY OF CAFE. PATIENT IN STABLE CONDITION.
[2020-10-23] MEDS: PIPERACILLIN/TAZOBACTAM 3.375 GM in DEXTROSE 5% 50 ML IV SCH ×3 (01:30→13:28)
[2020-10-23] MEDS: ONDANSETRON 4 MG/2 ML VIAL IVP PRN ×3 (03:06→13:56)
[2020-10-23] MEDS: NACL 0.9% 1,000 ML IV SCH ×2 (06:48→14:59)
[2020-10-23 06:57] LABS: BASOPHILS % (AUTO) 0.2 % (0.0-2.0); EOSINOPHILS % (AUTO) 0.2 % (0.0-4.0); HEMATOCRIT 24.2 % (36-48); HEMOGLOBIN 8.1 g/dL (12.0-16.0); LYMPHOCYTES # (AUTO) 1.2 K/uL (2.5-16.5); LYMPHOCYTES % (AUTO) 12.8 % (20.5-51.1); MEAN CORPUSCULAR HEMOGLOBIN 26 pg (27-31); MEAN CORPUSCULAR HGB CONC 33 g/dL (33-37); MEAN CORPUSCULAR VOLUME 79.3 fL (80-94); MONOCYTES # (AUTO) 0.8 K/uL (0.8-1.0); MONOCYTES % (AUTO) 8.5 % (1.7-9.3); NEUTROPHILS # (AUTO) 7.4 K/uL (1.8-7.7); NEUTROPHILS % (AUTO) 78.3 % (42.2-75.2); PLATELET COUNT (AUTO) 422 K/uL (140-450); RED BLOOD CELL COUNT(AUTO) 3.06 MIL/uL (4.20-5.40); RED CELL DISTRIBUTION WIDTH 15.4 % (11.6-13.7); WHITE BLOOD COUNT (AUTO) 9.4 K/uL (4.8-10.8)
[2020-10-23] MEDS: BLOOD GLUCOSE MONITORING 1 DEV DEV FS SCH ×2 (07:00→13:06)
[2020-10-23] MEDS: INSULIN LISPRO SLIDING SCALE 100 UNITS/ML VIAL SUBQ PRN ×2 (07:03→13:09)
[2020-10-23 07:39] LABS: ANION GAP 15.1 (8-16); CARBON DIOXIDE 22.7 mmol/L (21-32); CREATININE 1.1 mg/dL (0.6-1.3); MAGNESIUM 2.2 mg/dL (1.8-2.4); POTASSIUM 3.8 mmol/L (3.5-5.1); TOTAL BILIRUBIN 0.3 mg/dL (0.0-1.0)
[2020-10-23 07:42] LABS: APPEARANCE,URINE CLOUDY (CLEAR); BILIRUBIN,URINE NEGATIVE (NEGATIVE); BLOOD, URINE 3+ (NEGATIVE); COLOR,URINE DARK YELLOW (YELLOW); LEUKOCYTE ESTERASE ,URINE 2+ (NEGATIVE); NITRITE, URINE NEGATIVE (NEGATIVE); PH,URINE 5.5 (5.0-9.0); UGLUCOSE TRACE (NEGATIVE)
[2020-10-23 08:00] VITALS: BP 128/63
[2020-10-23 08:34] LABS: PROTHROMBIN TIME 9.8 secs (10.8-13.4)
[2020-10-23] MEDS: DOCUSATE SODIUM 100 MG GELCAP PO SCH (09:00)
[2020-10-23] MEDS ORDERED: BUPIVACAINE-MPF/EPI 0.5% 30 ML VIAL INJ ONE ×2 (09:30→09:31)
[2020-10-23] MEDS ORDERED: LIDOCAINE 1% 500 MG/50 ML VIAL ONE (09:30)
--- NOTE | 2020-10-23 09:58 | NUR ---
PATIENT WAS PICKED UP BY THE OR NURSE FOR PROCEDURE CHOLECYSTECTOMY.
[2020-10-23] MEDS ORDERED: METOCLOPRAMIDE 10 MG/2 ML INJ VIAL ONE (10:15)
[2020-10-23] MEDS ORDERED: GLYCOPYRROLATE 0.2 MG/ML VIAL ONE (10:15)
[2020-10-23] MEDS ORDERED: ONDANSETRON 4 MG/2 ML VIAL ONE (10:15)
[2020-10-23] MEDS ORDERED: DEXAMETHASONE 4 MG/ML VIAL ONE (10:15)
[2020-10-23] MEDS ORDERED: MIDAZOLAM 2 MG/2 ML VIAL ONE (10:15)
[2020-10-23] MEDS ORDERED: SUCCINYLCHOLINE CHLORIDE 200 MG/10 ML VIAL IVP ONE (10:15)
[2020-10-23] MEDS ORDERED: fentaNYL citrate 0.05 MG/ML VIAL ONE (10:15)
[2020-10-23] MEDS ORDERED: SEVOFLURANE 250 ML BTL INH ONE (10:15)
[2020-10-23] MEDS ORDERED: NEOSTIGMINE 1:1000 10 MG/10 ML VIAL ONE (10:15)
[2020-10-23] MEDS ORDERED: PROPOFOL 200 MG/20 ML VIAL IV ONE (10:15)
[2020-10-23] MEDS ORDERED: KETOROLAC 30 MG/ML VIAL ONE (10:15)
[2020-10-23] MEDS ORDERED: ROCURONIUM 50 MG/5 ML VIAL IV ONE (10:15)
[2020-10-23] MEDS ORDERED: LIDOCAINE 2% 100 MG/5 ML SYR IVP ONE (10:15)
[2020-10-23 10:38] LABS: RBC,URINE 11-20 (MOD) /HPF (0-5)
[2020-10-23 10:39] LABS: YEAST,URINE Many /HPF (None Seen)
[2020-10-23] MEDS: HYDROmorphone PFS 2 MG/ML SYR ONE ×2 (11:36→11:46)
[2020-10-23] MEDS ORDERED: HYDROmorphone 1 MG/ML AMP IVP PRN ×2 (11:40→12:00)
[2020-10-23] MEDS ORDERED: MORPHINE SULFATE 4 MG/ML SYR IV PRN (11:40)
[2020-10-23] MEDS ORDERED: MORPHINE SULFATE 2 MG/ML SYR IVP PRN (11:40)
--- NOTE | 2020-10-23 12:30 | NUR ---
PATIENT BACK FROM OR S/P CHOLECYSTECTOMY. 4 INCISIONS AT ABDOMEN. COVERED WITH BANDAGE. AWAKE, ABLE TO MAKE NEEDS KNOWN. V/S CHECKED. WILL CONTINUE TO MONITOR.
--- NOTE | 2020-10-23 13:09 | NUR ---
8 UNITS OF HUMALOG GIVEN FOR BLOOD GLUCOSE LEVEL 332. PATIENT IS POST CHOLECYSTECTOMY. SAFETY MEASURES IN PLACE, WILL CONTINUE TO MONITOR.
--- NOTE | 2020-10-23 16:15 | NUR ---
DISCHARGE INSTRUCTIONS PROVIDED. VERBALIZED UNDERSTANDING. SAFETY MEASURES IN PLACE.
--- NOTE | 2020-10-23 16:35 | NUR ---
ASSISTED PATIENT TO THE WHEELCHAIR. SENT PATIENT TO THE FRONT LOBBY, PATIENT WAS PICKED UP BY HER . PATIENT IN STABLE CONDITION.
== END 2020-10-23 16:35 | disposition home or self-care (01) ==
LOC: MED 16:14 → MMU 10-21 00:20 → MTU 10-21 20:52
PROVIDERS: ADMIT Hospitalist; ATTEND Hospitalist
DX: K80.10 Calculus of gallbladder with chronic cholecystitis without obstruction (principal); Z20.828 Contact with and (suspected) exposure to other viral communicable diseases; E11.65 Type 2 diabetes mellitus with hyperglycemia; E87.1 Hypo-osmolality and hyponatremia; D64.9 Anemia, unspecified; D72.829 Elevated white blood cell count, unspecified; N28.89 Other specified disorders of kidney and ureter; I10 Essential (primary) hypertension; N12 Tubulo-interstitial nephritis, not specified as acute or chronic; E78.5 Hyperlipidemia, unspecified; Z86.19 Personal history of other infectious and parasitic diseases; Z79.4 Long term (current) use of insulin; Z79.899 Other long term (current) drug therapy
CPT/HCPCS: 36415; 47562; 71045; 74176; 76705; 80053; 81001; 82374; 82948; 83605; 83690; 83735; 85025; 85610; 85730; 86886; 86900; 86901; 87040; 87081; 87086; 87426; 88304; 96361; 96365; 96366; 96367; 96372; 96375; 96376; 99285; C1887; G0378; J0330; J0696; J1100; J1170; J1815; J1885; J2001; J2250; J2270; J2405; J2543; J2704; J2710; J2765; J3010; J3490; J7030; J7060; Q0162